=== PATIENT | female | born 1945 | race Caucasian/White ===

== ENCOUNTER → 2016-07-20 | Outpatient (CLI) | payer OTHER ==
[~2016-07-20] VITALS: Ht 147.3 cm; Wt 37.2 kg
[~2016-07-20] MED LIST: ALPHA LIPOIC A200 M1 PO; CARDIZEM CD120 MG PO; HYDROCODONE-AP1 EAC6 PO; PRAVACHOL20 MG PO; RESTORIL15 M1 PO; ULTRAM 50MG TAB50 MG PO; VITAMIN C500 M1 PO
[2016-07-20 09:19] VITALS: BP 170/65
== END | disposition home or self-care (01) ==
LOC: CAT 08:34
DX: M71.30 Other bursal cyst, unspecified site (principal)